=== PATIENT | female | born 1950 | race Caucasian/White ===

== ENCOUNTER 2017-07-24 18:31 | Observation (INO) | payer MEDICARE ==
[2017-07-24] MEDS ORDERED: APRESOLINE 20 MG/ML INJ IV ONE ×3 (18:47→23:10)
--- NOTE | 2017-07-24 18:52 | ERPHSYRPT ---
- History of Present Illness Time Seen by Provider: 07/24/17 18:40 Source: patient, EMS Exam Limitations: intoxication Physician History: 66 y/o female withy history of DM and alcohol abuse brought in by ambulance for altered mental state. Neighbor called because the patient was acting bizarre and talking gibberish. Pt admits to drinking vodka. Pt is constantly talking about Nabeel Gomez. Pt arrives with a BP of 234/135. Pt is not a reliable historian because of her intoxication. Timing/Duration: today Severity: mild Character of Deficits: none Deficits: no difficulties Baseline/Normal Cognition: alert but confused Current Cognition: alert but confused Baseline Gait: walks w/o assistance Associated Symptoms: denies symptoms Allergies/Adverse Reactions: hydrocodone bitartrate [From Lortab] Allergy (Mild, Verified 07/24/17 18:47) JERKING Home Medications: Albuterol Sulfate [Proventil Hfa] 108 mg IH Q4HPRN PRN 07/24/17 [History] Amitriptyline HCl 10 mg [Elavil 10 mg] 10 mg PO HS 07/24/17 [History] Atorvastatin Calcium [Lipitor] 20 mg PO DAILY 07/24/17 [History] Lisinopril/Hydrochlorothiazide [Lisinopril-Hctz 20-12.5 mg Tab] 1 each PO DAILY 07/24/17 [History] Metformin HCl 500 mg [Glucophage 500 MG] 500 mg PO BID 07/24/17 [History] Hx Tetanus, Diphtheria Vaccination/Date Given: No Hx Influenza Vaccination/Date Given: No Hx Pneumococcal Vaccination/Date Given: No - Review of Systems Constitutional: Fatigue, No Fever, No Chills Eyes: No Symptoms Ears, Nose, & Throat: No Symptoms Respiratory: No Cough, No Dyspnea Cardiac: No Chest Pain, No Edema, No Syncope Abdominal/Gastrointestinal: No Abdominal Pain, No Nausea, No Vomiting, No Diarrhea Genitourinary Symptoms: No Dysuria Musculoskeletal: No Back Pain, No Neck Pain Skin: Other (skin tear), No Rash Neurological: No Dizziness, No Focal Weakness, No Sensory Changes Psychological: No Symptoms Endocrine: No Symptoms All Other Systems: Reviewed and Negative - Past Medical History Pertinent Past Medical History: Yes Neurological History: TIA ENT History: Macular Degeneration, Other Cardiac History: Hypertension Respiratory History: Asthma Endocrine Medical History: Diabetes Type II Musculoskeletal History: Arthritis GI Medical History: GERD, Gallbladder Disease, Hemorrhoids History: No Pertinent History Psycho-Social History: Anxiety, Depression Female Reproductive Disorders: No Pertinent History - Past Surgical History Past Surgical History: Yes Neuro Surgical History: No Pertinent History Cardiac: No Pertinent History Respiratory: No Pertinent History Gastrointestinal: Cholecystectomy Genitourinary: No Pertinent History Musculoskeletal: No Pertinent History Female Surgical History: No Pertinent History - Social History Smoking Status: Never smoker Exposure to second hand smoke: No Drug Use: none Patient Lives Alone: Yes - Nursing Vital Signs Nursing Vital Signs: Initial Vital Signs Temperature 97.5 F 07/24/17 18:33 Pulse Rate 113 H 07/24/17 18:33 Respiratory Rate 20 07/24/17 18:33 Blood Pressure 227/139 07/24/17 18:33 O2 Sat by Pulse Oximetry 96 07/24/17 18:33 Pain Scale Pain Intensity 0 - Andrei Coma Scale Best Eye Response (Morrow): (4) open spontaneously Best Verbal Response (Morrow): (5) oriented Best Motor Response (Andrei): (6) obeys commands Andrei Total: 15 - Physical Exam General Appearance: no apparent distress, alert Eye Exam: bilateral eye: PERRL, EOMI Ears, Nose, Throat Exam: normal ENT inspection, moist mucous membranes Neck Exam: normal inspection, non-tender, supple Respiratory: normal breath sounds, lungs clear, airway intact, No respiratory distress Cardiovascular: tachycardia, No edema Gastrointestinal: soft, No tenderness, No distention Back Exam: normal inspection Extremity Exam: normal inspection, No pedal edema Mental Status: alert, agitated, intoxicated appearance certified juvenile probation officer Exam: abnormal speech, tongue midline, No normal speech Coordination/Gait: normal finger to nose, normal gait Motor/Sensory: no motor deficit, no sensory deficit Skin Exam: other (skin tear left arm), No rash - Course Nursing assessment & vital signs reviewed: Yes EKG Interpreted by Me: Sinus Tach (hr 106) Ordered Tests: Active Orders 24 hr Category Date Time Status EKG-ER Only STAT Care 07/24/17 18:45 Active IV Insertion STAT Care 07/24/17 18:45 Active CHEST 1 VIEW (PORTABLE) Stat Exams 07/24/17 18:46 Taken HEAD WITHOUT CONTRAST [CT] Stat Exams 07/24/17 18:45 Taken ACETAMINOPHEN Stat Lab 07/24/17 18:50 Completed BLOOD CULTURE Stat Lab 07/24/17 18:45 Ordered CBC W DIFF Stat Lab 07/24/17 18:50 Completed CMP Stat Lab 07/24/17 18:50 Completed ETHYL ALCOHOL Stat Lab 07/24/17 18:50 Completed Lactic Acid Stat Lab 07/24/17 19:10 Results PROTIME WITH INR Stat Lab 07/24/17 18:50 Completed PTT Stat Lab 07/24/17 18:50 Completed SALICYLATE Stat Lab 07/24/17 18:50 Completed TROPONIN Q3H Lab 07/24/17 18:50 Completed TROPONIN Q3H Lab 07/24/17 22:00 Ordered UA W/ MICROSCOPIC Stat Lab 07/24/17 19:25 Completed Urine Triage Profile Stat Lab 07/24/17 19:25 Completed Medication Summary Generic Name Dose Route Start Last Admin Trade Name Freq PRN Reason Stop Dose Admin Sodium Chloride 1,000 mls @ 999 mls/hr 07/24/17 20:18 07/24/17 20:23 Sodium Chloride 0.9% 1000 Ml IV 07/24/17 21:18 999 mls/hr .Q1H1M STA Administration Discontinued Medications Generic Name Dose Route Start Last Admin Trade Name Freq PRN Reason Stop Dose Admin Hydralazine HCl 10 mg 07/24/17 18:47 07/24/17 19:27 Apresoline 20 Mg/Ml Inj IV 07/24/17 18:48 10 mg STAT ONE Administration Hydralazine HCl Confirm 07/24/17 19:24 Apresoline 20 Mg/Ml Inj Administered 07/24/17 19:25 Dose 20 mg .ROUTE .STK-MED ONE Sodium Chloride Confirm 07/24/17 20:19 Sodium Chloride 0.9% 1000 Ml Administered 07/24/17 20:20 Dose 1,000 mls @ ud .ROUTE .STK-MED ONE Lab/Rad Data: Laboratory Result Diagrams 07/24/17 18:50 07/24/17 18:50 Laboratory Results 07/24/17 07/24/17 07/24/17 Range/Units 19:25 19:25 19:10 WBC (4.0-10.5) K/mm3 RBC (4.1-5.4) M/mm3 Hgb (12.0-16.0) gm/dl Hct (35-47) % MCV (78-100) fl MCH (26-32) pg MCHC (32-36) g/dl RDW (11.5-14.0) % Plt Count (150-450) K/mm3 MPV (6-9.5) fl Gran % (36.0-66.0) % Eos # (Auto) (0-0.5) Absolute Lymphs (auto) (1.0-4.6) Absolute Monos (auto) (0.0-1.3) Lymphocytes % (24.0-44.0) % Monocytes % (0.0-12.0) % Eosinophils % (0.00-5.0) % Basophils % (0.0-0.4) % Absolute Granulocytes (1.4-6.9) Basophils # (0-0.4) PT (9.95-12.35) SECONDS INR (0.8-3.0) APTT (25.3-37.0) SECONDS Sodium (137-145) mmol/L Potassium (3.5-5.1) mmol/L Chloride (98-107) mmol/L Carbon Dioxide (22-30) mmol/L Anion Gap (5-15) MEQ/L BUN (7-17) mg/dL Creatinine (0.52-1.04) mg/dL Estimated GFR ML/MIN Glucose (74-106) mg/dL Lactic Acid 3.2 H (0.4-2.0) Calcium (8.4-10.2) mg/dL Total Bilirubin (0.2-1.3) mg/dL AST (14-36) U/L ALT (0-35) U/L Alkaline Phosphatase (38-126) U/L Troponin I (0.000-0.034) ng/mL Serum Total Protein (6.3-8.2) g/dL Albumin (3.5-5.0) g/dL Ur Collection Type VOID Urine Color YELLOW (YELLOW) Urine Appearance CLEAR (CLEAR) Urine pH 6.0 (5-6) Ur Specific [place] 1.015 (1.005-1.025) Urine Protein TRACE (Negative) Urine Ketones NEGATIVE (NEGATIVE) Urine Blood NEGATIVE (0-5) Robert/ul Urine Nitrite NEGATIVE (NEGATIVE) Urine Bilirubin NEGATIVE (NEGATIVE) Urine Urobilinogen NORMAL (0-1) mg/dL Ur Leukocyte Esterase NEGATIVE (NEGATIVE) Urine Microscopic RBC 0-2 (0-2) /HPF Urine Microscopic WBC 0-2 (0-5) /HPF Ur Epithelial Cells FEW (FEW) /HPF Urine Bacteria FEW (NEGATIVE) /HPF Urine Culture Reflexed NO (NO) Urine Glucose NEGATIVE (NEGATIVE) mg/dL Salicylates (2-20) mg/dL Urine Opiates Level NEGATIVE (NEGATIVE) Ur Methadone NEGATIVE (NEGATIVE) Acetaminophen (10-30) ug/ml Urine Barbiturates NEGATIVE (NEGATIVE) Ur Phencyclidine (PCP) NEGATIVE (NEGATIVE) Urine Amphetamine NEGATIVE (NEGATIVE) U Benzodiazepine Level NEGATIVE (NEGATIVE) Urine Cocaine NEGATIVE (NEGATIVE) Urine Marijuana (THC) NEGATIVE (NEGATIVE) Ethyl Alcohol (0-9) mg/dL Specimen Received 07/24/17 19307/24/17 07/24/17 07/24/17 Range/Units 18:50 18:50 18:50 WBC (4.0-10.5) K/mm3 RBC (4.1-5.4) M/mm3 Hgb (12.0-16.0) gm/dl Hct (35-47) % MCV (78-100) fl MCH (26-32) pg MCHC (32-36) g/dl RDW (11.5-14.0) % Plt Count (150-450) K/mm3 MPV (6-9.5) fl Gran % (36.0-66.0) % Eos # (Auto) (0-0.5) Absolute Lymphs (auto) (1.0-4.6) Absolute Monos (auto) (0.0-1.3) Lymphocytes % (24.0-44.0) % Monocytes % (0.0-12.0) % Eosinophils % (0.00-5.0) % Basophils % (0.0-0.4) % Absolute Granulocytes (1.4-6.9) Basophils # (0-0.4) PT 10.2 (9.95-12.35) SECONDS INR 0.92 (0.8-3.0) APTT 28.1 (25.3-37.0) SECONDS Sodium 147 H (137-145) mmol/L Potassium 4.9 (3.5-5.1) mmol/L Chloride 104 (98-107) mmol/L Carbon Dioxide 28 (22-30) mmol/L Anion Gap 19.8 H (5-15) MEQ/L BUN 14 (7-17) mg/dL Creatinine 0.67 (0.52-1.04) mg/dL Estimated GFR > 60.0 ML/MIN Glucose 195 H (74-106) mg/dL Lactic Acid (0.4-2.0) Calcium 9.6 (8.4-10.2) mg/dL Total Bilirubin 0.40 (0.2-1.3) mg/dL AST 40 H (14-36) U/L ALT 58 H (0-35) U/L Alkaline Phosphatase 95 (38-126) U/L Troponin I < 0.012 (0.000-0.034) ng/mL Serum Total Protein 7.4 (6.3-8.2) g/dL Albumin 4.4 (3.5-5.0) g/dL Ur Collection Type Urine Color (YELLOW) Urine Appearance (CLEAR) Urine pH (5-6) Ur Specific [place] (1.005-1.025) Urine Protein (Negative) Urine Ketones (NEGATIVE) Urine Blood (0-5) Robert/ul Urine Nitrite (NEGATIVE) Urine Bilirubin (NEGATIVE) Urine Urobilinogen (0-1) mg/dL Ur Leukocyte Esterase (NEGATIVE) Urine Microscopic RBC (0-2) /HPF Urine Microscopic WBC (0-5) /HPF Ur Epithelial Cells (FEW) /HPF Urine Bacteria (NEGATIVE) /HPF Urine Culture Reflexed (NO) Urine Glucose (NEGATIVE) mg/dL Salicylates < 1.0 L (2-20) mg/dL Urine Opiates Level (NEGATIVE) Ur Methadone (NEGATIVE) Acetaminophen < 10 L (10-30) ug/ml Urine Barbiturates (NEGATIVE) Ur Phencyclidine (PCP) (NEGATIVE) Urine Amphetamine (NEGATIVE) U Benzodiazepine Level (NEGATIVE) Urine Cocaine (NEGATIVE) Urine Marijuana (THC) (NEGATIVE) Ethyl Alcohol 284 H (0-9) mg/dL Specimen Received 07/24/17 Range/Units 18:50 WBC 9.7 (4.0-10.5) K/mm3 RBC 4.94 (4.1-5.4) M/mm3 Hgb 15.4 (12.0-16.0) gm/dl Hct 46.1 (35-47) % MCV 93.3 (78-100) fl MCH 31.2 (26-32) pg MCHC 33.4 (32-36) g/dl RDW 14.9 H (11.5-14.0) % Plt Count 291 (150-450) K/mm3 MPV 9.1 (6-9.5) fl Gran % 37.6 (36.0-66.0) % Eos # (Auto) 0.46 (0-0.5) Absolute Lymphs (auto) 4.58 (1.0-4.6) Absolute Monos (auto) 0.86 (0.0-1.3) Lymphocytes % 47.3 H (24.0-44.0) % Monocytes % 8.9 (0.0-12.0) % Eosinophils % 4.8 (0.00-5.0) % Basophils % 1.4 (0.0-0.4) % Absolute Granulocytes 3.64 (1.4-6.9) Basophils # 0.14 (0-0.4) PT (9.95-12.35) SECONDS INR (0.8-3.0) APTT (25.3-37.0) SECONDS Sodium (137-145) mmol/L Potassium (3.5-5.1) mmol/L Chloride (98-107) mmol/L Carbon Dioxide (22-30) mmol/L Anion Gap (5-15) MEQ/L BUN (7-17) mg/dL Creatinine (0.52-1.04) mg/dL Estimated GFR ML/MIN Glucose (74-106) mg/dL Lactic Acid (0.4-2.0) Calcium (8.4-10.2) mg/dL Total Bilirubin (0.2-1.3) mg/dL AST (14-36) U/L ALT (0-35) U/L Alkaline Phosphatase (38-126) U/L Troponin I (0.000-0.034) ng/mL Serum Total Protein (6.3-8.2) g/dL Albumin (3.5-5.0) g/dL Ur Collection Type Urine Color (YELLOW) Urine Appearance (CLEAR) Urine pH (5-6) Ur Specific [place] (1.005-1.025) Urine Protein (Negative) Urine Ketones (NEGATIVE) Urine Blood (0-5) Robert/ul Urine Nitrite (NEGATIVE) Urine Bilirubin (NEGATIVE) Urine Urobilinogen (0-1) mg/dL Ur Leukocyte Esterase (NEGATIVE) Urine Microscopic RBC (0-2) /HPF Urine Microscopic WBC (0-5) /HPF Ur Epithelial Cells (FEW) /HPF Urine Bacteria (NEGATIVE) /HPF Urine Culture Reflexed (NO) Urine Glucose (NEGATIVE) mg/dL Salicylates (2-20) mg/dL Urine Opiates Level (NEGATIVE) Ur Methadone (NEGATIVE) Acetaminophen (10-30) ug/ml Urine Barbiturates (NEGATIVE) Ur Phencyclidine (PCP) (NEGATIVE) Urine Amphetamine (NEGATIVE) U Benzodiazepine Level (NEGATIVE) Urine Cocaine (NEGATIVE) Urine Marijuana (THC) (NEGATIVE) Ethyl Alcohol (0-9) mg/dL Specimen Received - Progress Progress: unchanged Progress Note: 07/24/17 20:24 Repeat BP is 168/74. Pt has an alcohol level of 284. CT scan head is negative. CXR is negative. Lactic acid is 3.2 and the patient will be given a liter of fluids. Pt has a Na of 147. Pt lives alone and is a fall risk. Pt has been admitted to Dr Daigle for alcohol intoxication. - Departure Time of Disposition: 20:26 Departure Disposition: Observation Clinical Impression: Alcohol intoxication Qualifiers: Complication of substance-induced condition: uncomplicated Qualified Code(s): F10.920 - Alcohol use, unspecified with intoxication, uncomplicated Condition: Fair Critical Care Time: No Referrals: MACK MILIAN MD [Primary Care Provider] -
[2017-07-24 19:03] LABS: BASOPHIL % 1.4 % (0.0-0.4); Basophil (Absolute #) 0.14 (0-0.4); Eosinophil % 4.8 % (0.00-5.0); Eosinophil (Absolute #) 0.46 (0-0.5); Granulocyte Absolute (ANC) 3.64 (1.4-6.9); Granulocytes % 37.6 % (36.0-66.0); Hematocrit 46.1 % (35-47); Hemoglobin 15.4 gm/dl (12.0-16.0); Lymphocyte (Absolute #) 4.58 (1.0-4.6); Lymphocytes % 47.3 % (24.0-44.0); Mean Cell Volume 93.3 fl (78-100); Mean Corpuscular Hemoglobin 31.2 pg (26-32); Mean Corpuscular Hgb Concent. 33.4 g/dl (32-36); Mean Platelet Volume 9.1 fl (6-9.5); Monocyte (Absolute #) 0.86 (0.0-1.3); Monocytes % 8.9 % (0.0-12.0); Platelet Count 291 K/mm3 (150-450); Red Blood Count 4.94 M/mm3 (4.1-5.4); Red Cell Distribution Width 14.9 % (11.5-14.0); White Blood Count 9.7 K/mm3 (4.0-10.5)
[2017-07-24 19:16] LABS: INR 0.92 (0.8-3.0)
[2017-07-24 19:17] LABS: Lactic Acid 3.2 (0.4-2.0)
[2017-07-24 19:18] LABS: PTT 28.1 SECONDS (25.3-37.0)
[2017-07-24 19:23] LABS: ALBUMIN 4.4 g/dL (3.5-5.0); ALKALINE PHOSPHATASE 95 U/L (38-126); ANION GAP 19.8 MEQ/L (5-15); BLOOD UREA NITROGEN 14 mg/dL (7-17); CHLORIDE 104 mmol/L (98-107); Calcium 9.6 mg/dL (8.4-10.2); Carbon Dioxide 28 mmol/L (22-30); Creatinine 1 0.67 mg/dL (0.52-1.04); ETHYL ALCOHOL 284 mg/dL (0-9); Glucose 195 mg/dL (74-106); Potassium 4.9 mmol/L (3.5-5.1); SGOT/AST 40 U/L (14-36); SGPT/ALT 58 U/L (0-35); SODIUM 147 mmol/L (137-145); Total Protein 7.4 g/dL (6.3-8.2)
[2017-07-24] MEDS ORDERED: APRESOLINE 20 MG/ML INJ ONE (19:24)
[2017-07-24 19:39] LABS: Appearance CLEAR (CLEAR); Bilirubin NEGATIVE (NEGATIVE); Blood NEGATIVE Ery/ul (0-5); Glucose NEGATIVE (NEGATIVE); Ketones NEGATIVE (NEGATIVE); Leukocyte Esterase NEGATIVE (NEGATIVE); Nitrite NEGATIVE (NEGATIVE); Protein,Urine Dip TRACE (Negative); Specific Gravity 1.015 (1.005-1.025); Urobilinogen NORMAL mg/dL (0-1)
[2017-07-24 19:40] LABS: Bacteria FEW /HPF (NEGATIVE); Epithelial Cells FEW /HPF (FEW); WBC 0-2 /HPF (0-5)
[2017-07-24 19:41] LABS: ACETAMINOPHEN < 10 ug/ml (10-30); SALICYLATE < 1.0 mg/dL (2-20)
[2017-07-24 19:45] LABS: Amphetamine,Urine NEGATIVE (NEGATIVE); Barbiturate,Urine NEGATIVE (NEGATIVE); Benzodiazepine,Urine NEGATIVE (NEGATIVE); Cocaine,Urine NEGATIVE (NEGATIVE); Methadone,Urine NEGATIVE (NEGATIVE); Opiate,Urine NEGATIVE (NEGATIVE); PCP,Urine NEGATIVE (NEGATIVE); THC,Urine NEGATIVE (NEGATIVE)
[2017-07-24] MEDS ORDERED: Sodium Chloride 0.9% 1000 ML 1,000 ML IV STA ×2 (20:18→22:58)
[2017-07-24] MEDS ORDERED: Sodium Chloride 0.9% 1000 ML 1,000 ML ONE (20:19)
[2017-07-24] MEDS ORDERED: Zofran 4 MG/2 ML VIAL IV PRN (20:26)
[2017-07-24] MEDS ORDERED: Sodium Chloride 0.9% 1000 ML 1,000 ML IV SCH (20:30)
[2017-07-24 22:06] LABS: Lactic Acid 3.2 (0.4-2.0)
[2017-07-24] MEDS ORDERED: TYLENOL EXTRA STRENGTH 500 MG PO PRN (22:57)
[2017-07-24] MEDS ORDERED: NovoLOG Insulin SQ PRN (22:58)
[2017-07-25 05:56] LABS: BASOPHIL % 0.7 % (0.0-0.4); Basophil (Absolute #) 0.09 (0-0.4); Eosinophil % 1.4 % (0.00-5.0); Eosinophil (Absolute #) 0.18 (0-0.5); Granulocyte Absolute (ANC) 8.52 (1.4-6.9); Hematocrit 44.6 % (35-47); Hemoglobin 14.9 gm/dl (12.0-16.0); Lymphocyte (Absolute #) 3.17 (1.0-4.6); Lymphocytes % 24.5 % (24.0-44.0); Mean Cell Volume 92.7 fl (78-100); Mean Corpuscular Hgb Concent. 33.4 g/dl (32-36); Mean Platelet Volume 9.1 fl (6-9.5); Monocyte (Absolute #) 0.96 (0.0-1.3); Monocytes % 7.4 % (0.0-12.0); Platelet Count 276 K/mm3 (150-450); Red Blood Count 4.81 M/mm3 (4.1-5.4); Red Cell Distribution Width 14.8 % (11.5-14.0); White Blood Count 12.9 K/mm3 (4.0-10.5)
[2017-07-25 06:18] LABS: ANION GAP 16.4 MEQ/L (5-15); BLOOD UREA NITROGEN 9 mg/dL (7-17); CHLORIDE 100 mmol/L (98-107); Calcium 8.7 mg/dL (8.4-10.2); Carbon Dioxide 22 mmol/L (22-30); Creatinine 1 0.45 mg/dL (0.52-1.04); Glucose 199 mg/dL (74-106); Potassium 3.8 mmol/L (3.5-5.1); SODIUM 135 mmol/L (137-145)
--- NOTE | 2017-07-25 08:49 | XRAY ---
Indication: Acute mental status change. Comparison: January 12, 2011. Portable chest again demonstrates normal heart and lungs. Bony thorax intact again with minimal osteopenia and degenerative changes. No new/acute findings.
--- NOTE | 2017-07-25 08:49 | XRAY ---
Indication: Acute mental status change. Confusion. Multiple contiguous axial images obtained through the head without contrast. Comparison: November 05, 2013. Study slightly degraded by minimal motion artifact. Again age-appropriate global atrophy and minimal periventricular degenerative micro-ischemia bilaterally. No acute intracranial hemorrhage, abnormal extra-axial fluid collection, or mass effect. Fourth ventricle is midline without hydrocephalus. Bony calvarium intact. Visualized paranasal sinuses and mastoid air cells are clear. Impression: 1. Minimal motion artifact. 2. Grossly stable nonacute senile brain. Comment: Preliminary interpretation was made by [facility]. No discrepancy. CTDI 73.39
--- NOTE | 2017-07-25 11:20 | PCM.SSS ---
History of Present Illness - Chief Complaint Chief Complaint: alcohol intoxication History of Present Illness: is a 66 year old female who came to the ER after concern by a neighbor and the police were called, she admits to drinking a lot of alcohol and skinned her arm in the hallway. She denies pain today, feels well and is taking po. She is alert, denies suicidal or homicidal ideations. She was on amitriptyline in the past for depression but states it caused her a lot of sedation so stopped it more than a year ago. As of late feeling depressed, she is down about her alcohol relapse, normally attends AA meetings at her [facility]. - Review of Systems Constitutional: No Fever, No Chills Ears, Nose, & Throat: No Symptoms Respiratory: No Cough, No Short Of Breath Cardiac: No Chest Pain, No Edema, No Syncope Abdominal/Gastrointestinal: No Abdominal Pain, No Nausea, No Vomiting, No Diarrhea Skin: No Rash All Other Systems: Reviewed and Negative Medications & Allergies Home Medications: Home Medication List Ascorbic Acid [Vitamin C] 1,000 mg PO DAILY 07/25/17 [History Confirmed 07/25/17 ] Calcium 500 mg PO DAILY 07/25/17 [History Confirmed 07/25/17] Cholecalciferol (Vitamin D3) [Vitamin D3] 1,000 unit PO DAILY 07/25/17 [History Confirmed 07/25/17] Duloxetine HCl 30 mg [Cymbalta 30 MG Capsule] 30 mg PO DAILY #30 cap 07/25 [Rx] Ibuprofen 200 mg [Motrin 200 mg] 200 mg PO BID PRN PRN 07/25/17 [History Confirmed 07/25/17] Multivitamin [Daily Multiple Vitamin] 1 each PO DAILY 07/25/17 [History Confirmed 07/25/17] Allergies/Adverse Reactions: Allergies Allergy/AdvReac Type Severity Reaction Status Date / Time hydrocodone bitartrate Allergy Mild JERKING Verified 07/24/17 18:47 [From Lortab] - Past Medical History Past Medical History: Yes Neurological History: TIA ENT History: Macular Degeneration Cardiac History: Hypertension Respiratory History: Asthma Endocrine Medical History: Diabetes Type II Musculoskelatal History: Arthritis GI Medical History: GERD, Gallbladder Disease, Hemorrhoids History: No Pertinent History Pyscho-Social History: Anxiety, Depression Reproductive Disorders: No Pertinent History Comment: ALCOHOLISM - Female History Are you now?: No - Past Surgical History Past Surgical History: Yes Neuro Surgical History: No Pertinent History Cardiac History: No Pertinent History Respiratory Surgery: No Pertinent History GI Surgical History: Cholecystectomy Genitourinary Surgical Hx: No Pertinent History Musculskeletal Surgical Hx: No Pertinent History Female Surgical History: No Pertinent History - Social History Smoking Status: Never smoker Exposure to second hand smoke: Yes (past-father) Alcohol: Daily Drug Use: none - Physical Exam Vital Signs: Vital Signs - 24 hr Temp Pulse Resp BP Pulse Ox 07/25/17 07:31 124 H 22 97 07/25/17 04:00 98.7 F 120 H 20 97 07/25/17 00:01 120 H 07/25/17 00:00 99.0 F 120 H 27 H 178/109 96 07/24/17 21:12 97.8 F 119 H 32 H 178/105 98 07/24/17 19:50 97.5 F 114 H 20 133/89 94 L 07/24/17 19:47 97.5 F 114 H 20 133/89 94 L 07/24/17 18:33 97.5 F 113 H 20 227/139 96 General Appearance: no apparent distress, alert Eye Exam: PERRL/EOMI, eyes nml inspection Respiratory Exam: normal breath sounds, lungs clear, No respiratory distress Cardiovascular Exam: regular rate/rhythm, normal heart sounds, normal peripheral pulses Gastrointestinal/Abdomen Exam: soft, normal bowel sounds, No tenderness, No mass Extremity Exam: normal inspection, normal range of motion, pelvis stable Skin Exam: normal color, warm, dry, No rash Results - Labs Lab/Micro Results: Accuchecks Date 07/25/17 Time 07:27 Lab Results-Last 24 Hours 07/24/17 07/24/17 07/25/17 Range/Units 21:54 21:55 05:17 WBC 12.9 H (4.0-10.5) K/mm3 RBC 4.81 (4.1-5.4) M/mm3 Hgb 14.9 (12.0-16.0) gm/dl Hct 44.6 (35-47) % MCV 92.7 (78-100) fl MCH 31.0 (26-32) pg MCHC 33.4 (32-36) g/dl RDW 14.8 H (11.5-14.0) % Plt Count 276 (150-450) K/mm3 MPV 9.1 (6-9.5) fl Gran % 66.0 (36.0-66.0) % Eos # (Auto) 0.18 (0-0.5) Absolute Lymphs (auto) 3.17 (1.0-4.6) Absolute Monos (auto) 0.96 (0.0-1.3) Lymphocytes % 24.5 (24.0-44.0) % Monocytes % 7.4 (0.0-12.0) % Eosinophils % 1.4 (0.00-5.0) % Basophils % 0.7 (0.0-0.4) % Absolute Granulocytes 8.52 H (1.4-6.9) Basophils # 0.09 (0-0.4) Sodium (137-145) mmol/L Potassium (3.5-5.1) mmol/L Chloride (98-107) mmol/L Carbon Dioxide (22-30) mmol/L Anion Gap (5-15) MEQ/L BUN (7-17) mg/dL Creatinine (0.52-1.04) mg/dL Estimated GFR ML/MIN Glucose (74-106) mg/dL Lactic Acid 3.2 H (0.4-2.0) Calcium (8.4-10.2) mg/dL Troponin I < 0.012 (0.000-0.034) ng/mL 07/25/17 Range/Units 05:17 WBC (4.0-10.5) K/mm3 RBC (4.1-5.4) M/mm3 Hgb (12.0-16.0) gm/dl Hct (35-47) % MCV (78-100) fl MCH (26-32) pg MCHC (32-36) g/dl RDW (11.5-14.0) % Plt Count (150-450) K/mm3 MPV (6-9.5) fl Gran % (36.0-66.0) % Eos # (Auto) (0-0.5) Absolute Lymphs (auto) (1.0-4.6) Absolute Monos (auto) (0.0-1.3) Lymphocytes % (24.0-44.0) % Monocytes % (0.0-12.0) % Eosinophils % (0.00-5.0) % Basophils % (0.0-0.4) % Absolute Granulocytes (1.4-6.9) Basophils # (0-0.4) Sodium 135 L (137-145) mmol/L Potassium 3.8 (3.5-5.1) mmol/L Chloride 100 (98-107) mmol/L Carbon Dioxide 22 (22-30) mmol/L Anion Gap 16.4 H (5-15) MEQ/L BUN 9 (7-17) mg/dL Creatinine 0.45 L (0.52-1.04) mg/dL Estimated GFR > 60.0 ML/MIN Glucose 199 H (74-106) mg/dL Lactic Acid (0.4-2.0) Calcium 8.7 (8.4-10.2) mg/dL Troponin I (0.000-0.034) ng/mL Accuchecks Date 07/25/17 Time 07:27 Assessment/Plan (1) Alcohol intoxication Current Visit: Yes Status: Acute Onset Date: ~07/24/17 Qualifiers: Complication of substance-induced condition: uncomplicated Qualified Code(s ): F10.920 - Alcohol use, unspecified with intoxication, uncomplicated Assessment & Plan: resolved at this time, recommend she continue AA meetings and some outpatient counseling needs started, she agrees to this. (2) Chronic alcohol abuse Current Visit: No Status: Chronic Code(s): F10.10 - ALCOHOL ABUSE, UNCOMPLICATED (3) Depression Current Visit: Yes Status: Acute Assessment & Plan: awaiting psych consult at this time, would recommend we start on antidepressant and have her followup as an outpatient with me as scheduled on 08/15/17 at 1pm Code(s): F32.9 - MAJOR DEPRESSIVE DISORDER, SINGLE EPISODE, UNSPECIFIED Hospital Summary - Vitals & Intake/Output Vital Signs: Vital Signs Temperature 98.7 F 07/25/17 04:00 Pulse Rate 124 H 07/25/17 07:31 Respiratory Rate 22 07/25/17 07:31 Blood Pressure 178/109 07/25/17 00:00 O2 Sat by Pulse Oximetry 97 07/25/17 07:31 Intake & Output: Intake & Output 07/22/17 07/23/17 07/24/1718 11:59 11:59 11:59 11:59 Intake Total 3120 Balance 3120 Weight 81.2 kg - Lab Result Diagrams: 07/25/17 05:17 07/25/17 05:17 Lab Results-Last 24 Hrs: Accuchecks Date 07/25/17 Time 07:27 Lab Results-Last 24 Hours 07/24/17 07/24/17 07/25/17 Range/Units 21:54 21:55 05:17 WBC 12.9 H (4.0-10.5) K/mm3 RBC 4.81 (4.1-5.4) M/mm3 Hgb 14.9 (12.0-16.0) gm/dl Hct 44.6 (35-47) % MCV 92.7 (78-100) fl MCH 31.0 (26-32) pg MCHC 33.4 (32-36) g/dl RDW 14.8 H (11.5-14.0) % Plt Count 276 (150-450) K/mm3 MPV 9.1 (6-9.5) fl Gran % 66.0 (36.0-66.0) % Eos # (Auto) 0.18 (0-0.5) Absolute Lymphs (auto) 3.17 (1.0-4.6) Absolute Monos (auto) 0.96 (0.0-1.3) Lymphocytes % 24.5 (24.0-44.0) % Monocytes % 7.4 (0.0-12.0) % Eosinophils % 1.4 (0.00-5.0) % Basophils % 0.7 (0.0-0.4) % Absolute Granulocytes 8.52 H (1.4-6.9) Basophils # 0.09 (0-0.4) Sodium (137-145) mmol/L Potassium (3.5-5.1) mmol/L Chloride (98-107) mmol/L Carbon Dioxide (22-30) mmol/L Anion Gap (5-15) MEQ/L BUN (7-17) mg/dL Creatinine (0.52-1.04) mg/dL Estimated GFR ML/MIN Glucose (74-106) mg/dL Lactic Acid 3.2 H (0.4-2.0) Calcium (8.4-10.2) mg/dL Troponin I < 0.012 (0.000-0.034) ng/mL 07/25/17 Range/Units 05:17 WBC (4.0-10.5) K/mm3 RBC (4.1-5.4) M/mm3 Hgb (12.0-16.0) gm/dl Hct (35-47) % MCV (78-100) fl MCH (26-32) pg MCHC (32-36) g/dl RDW (11.5-14.0) % Plt Count (150-450) K/mm3 MPV (6-9.5) fl Gran % (36.0-66.0) % Eos # (Auto) (0-0.5) Absolute Lymphs (auto) (1.0-4.6) Absolute Monos (auto) (0.0-1.3) Lymphocytes % (24.0-44.0) % Monocytes % (0.0-12.0) % Eosinophils % (0.00-5.0) % Basophils % (0.0-0.4) % Absolute Granulocytes (1.4-6.9) Basophils # (0-0.4) Sodium 135 L (137-145) mmol/L Potassium 3.8 (3.5-5.1) mmol/L Chloride 100 (98-107) mmol/L Carbon Dioxide 22 (22-30) mmol/L Anion Gap 16.4 H (5-15) MEQ/L BUN 9 (7-17) mg/dL Creatinine 0.45 L (0.52-1.04) mg/dL Estimated GFR > 60.0 ML/MIN Glucose 199 H (74-106) mg/dL Lactic Acid (0.4-2.0) Calcium 8.7 (8.4-10.2) mg/dL Troponin I (0.000-0.034) ng/mL Micro Results-Entire Visit: Accuchecks Date 07/25/17 Time 07:27 - Discharge Disposition: Home, Self-Care Condition: Good Prescriptions: New Duloxetine HCl 30 mg [Cymbalta 30 MG Capsule] 30 mg PO DAILY #30 cap Continue Multivitamin [Daily Multiple Vitamin] 1 each PO DAILY Ibuprofen 200 mg [Motrin 200 mg] 200 mg PO BID PRN PRN PRN Reason: pain Cholecalciferol (Vitamin D3) [Vitamin D3] 1,000 unit PO DAILY Calcium 500 mg PO DAILY Ascorbic Acid [Vitamin C] 1,000 mg PO DAILY Follow up with: MACK MILIAN MD [Primary Care Provider] - 1 Week
[2017-07-25] MEDS ORDERED: MOTRIN 200 MG PO PRN (12:09)
[2017-07-25] MEDS ORDERED: VITAMIN D PO SCH (13:00)
[2017-07-25] MEDS ORDERED: Vitamin C 500 MG PO SCH (13:00)
[2017-07-25 16:47] VITALS: BP 187/107; PULSE 112; O2SAT 97
[2017-07-26] MEDS ORDERED: Calcium 500MG W/Vit D Tablet PO SCH (10:00)
[2017-07-26] MEDS ORDERED: THERAGRAN MULTIVITAMIN PO SCH (10:00)
[2017-07-26] MEDS ORDERED: NON-FORMULARY ITEM (Cholecalciferol (Vitamin D3) [Vitamin D3] 1,000 UNIT) PO SCH (10:00)
[2017-07-26] MEDS ORDERED: MULTIVITAMIN PO SCH (10:00)
[2017-07-26] MEDS ORDERED: NON-FORMULARY ITEM (Ascorbic Acid [Vitamin C] 1,000 MG) PO SCH (10:00)
== END 2017-07-25 17:38 | disposition home or self-care (01) ==
LOC: ED 18:31 → ICU 20:49 → MED SURG 07-25 09:11
PROVIDERS: ADMIT Family Medicine; ATTEND Family Medicine
DX: F10.920 Alcohol use, unspecified with intoxication, uncomplicated (principal); F10.10 Alcohol abuse, uncomplicated; F32.9 Major depressive disorder, single episode, unspecified; E11.9 Type 2 diabetes mellitus without complications; Z79.4 Long term (current) use of insulin; F41.9 Anxiety disorder, unspecified
CPT/HCPCS: 36000; 36415; 70450; 71045; 80048; 80053; 80302; 80307; 81000; 82962; 83605; 84484; 85025; 85610; 85730; 87040; 90791; 93005; 93268; 96360; 96374; 99285; G0378; G0481; 99284; J0360; J2405; Q3014; A9270-GY; G0480

== ENCOUNTER 2017-08-04 16:58 | Observation (INO) | payer MEDICARE ==
[2017-08-04] MEDS ORDERED: Pepcid 20 MG VIAL IV ONE ×2 (17:44→17:48)
[2017-08-04] MEDS ORDERED: Zofran 4 MG/2 ML VIAL IV ONE (17:45)
[2017-08-04] MEDS ORDERED: GI COCKTAIL 45 ML (Maalox/Lidocaine) PO ONE (17:46)
[2017-08-04] MEDS ORDERED: Zofran 4 MG/2 ML VIAL ONE (17:48)
[2017-08-04] MEDS ORDERED: MAALOX ES 30 ML UNIT DOSE ONE (17:48)
[2017-08-04] MEDS ORDERED: XYLOCAINE HCl Viscous ONE (17:48)
[2017-08-04 17:57] LABS: BASOPHIL % 0.5 % (0.0-0.4); Basophil (Absolute #) 0.07 (0-0.4); Eosinophil % 0.1 % (0.00-5.0); Eosinophil (Absolute #) 0.02 (0-0.5); Granulocyte Absolute (ANC) 13.24 (1.4-6.9); Granulocytes % 85.2 % (36.0-66.0); Hematocrit 47.7 % (35-47); Hemoglobin 16.1 gm/dl (12.0-16.0); Lymphocyte (Absolute #) 1.53 (1.0-4.6); Lymphocytes % 9.8 % (24.0-44.0); Mean Cell Volume 92.4 fl (78-100); Mean Corpuscular Hemoglobin 31.2 pg (26-32); Mean Corpuscular Hgb Concent. 33.8 g/dl (32-36); Mean Platelet Volume 9.4 fl (6-9.5); Monocyte (Absolute #) 0.69 (0.0-1.3); Monocytes % 4.4 % (0.0-12.0); Platelet Count 291 K/mm3 (150-450); Red Blood Count 5.16 M/mm3 (4.1-5.4); Red Cell Distribution Width 14.8 % (11.5-14.0); White Blood Count 15.6 K/mm3 (4.0-10.5)
[2017-08-04 18:02] LABS: ALKALINE PHOSPHATASE 105 U/L (38-126); AMYLASE 81 U/L (30-110); ANION GAP 24.5 MEQ/L (5-15); BLOOD UREA NITROGEN 15 mg/dL (7-17); CHLORIDE 97 mmol/L (98-107); Calcium 10.1 mg/dL (8.4-10.2); Carbon Dioxide 20 mmol/L (22-30); Creatinine 1 0.54 mg/dL (0.52-1.04); Glucose 252 mg/dL (74-106); LIPASE 85 U/L (23-300); Potassium 4.2 mmol/L (3.5-5.1); SGOT/AST 41 U/L (14-36); SODIUM 137 mmol/L (137-145); Total Protein 8.3 g/dL (6.3-8.2)
[2017-08-04] MEDS ORDERED: Sodium Chloride 0.9% 1000 ML 1,000 ML IV STA (18:04)
[2017-08-04 18:08] LABS: SGPT/ALT 45 U/L (0-35)
[2017-08-04] MEDS ORDERED: Sodium Chloride 0.9% 1000 ML 1,000 ML ONE (18:15)
--- NOTE | 2017-08-04 18:15 | ERPHSYRPT ---
<OLVINWISAM - Last Filed: 08/04/17 19:28> - History of Present Illness Source: patient, EMS Exam Limitations: no limitations Patient Subjective Stated Complaint: states has been drinking for two days. did not drink today. began having vomiting today with burning in esophagus. Triage Nursing Assessment: vomiting on arrival to er. skin w/d, color pale, resp nonlabored. patient has rambling speech. a/o times three at present time. has some bruising noted under right eye. abrasions and bruising noted to both lower arms. Timing/Duration: yesterday Severity: moderate Modifying Factors: Improves With: eating Associated Symptoms: nausea, vomiting Hx Tetanus, Diphtheria Vaccination/Date Given: No Hx Influenza Vaccination/Date Given: No Hx Pneumococcal Vaccination/Date Given: No <CASEY DORANTES - Last Filed: 08/05/17 10:40> - History of Present Illness Time Seen by Provider: 08/04/17 18:01 Physician History: Pt states, she has been binge drinking for 2 days, started vomiting this morning. She fell apparently today, hit her right cheek against dresser, not sure about LOC, but vomited several times. She denies chest pain, no SOB, abdominal pain, fever or other complaints, she is alert and oriented x4, not lethargic. (CASEY DORANTES) Allergies/Adverse Reactions: hydrocodone bitartrate [From Lortab] Allergy (Mild, Verified 08/04/17 17:10) JERKING Home Medications: Ascorbic Acid [Vitamin C] 1,000 mg PO DAILY 07/25/17 [History] Calcium 500 mg PO DAILY 07/25/17 [History] Cholecalciferol (Vitamin D3) [Vitamin D3] 1,000 unit PO DAILY 07/25/17 [History] Ibuprofen 200 mg [Motrin 200 mg] 200 mg PO BID PRN PRN 07/25/17 [History] Multivitamin [Daily Multiple Vitamin] 1 each PO DAILY 07/25/17 [History] Pseudoephedrine HCl [Sudafed] 30 mg PO DAILY 08/04/17 [History] - Review of Systems Constitutional: No Symptoms Abdominal/Gastrointestinal: Nausea, Vomiting All Other Systems: Reviewed and Negative <CASEY DORANTES - Last Filed: 08/05/17 10:40> - Past Medical History Pertinent Past Medical History: Yes Neurological History: TIA ENT History: Macular Degeneration Cardiac History: Hypertension Respiratory History: Asthma Endocrine Medical History: Diabetes Type II Musculoskeletal History: Arthritis GI Medical History: GERD, Gallbladder Disease, Hemorrhoids History: No Pertinent History Psycho-Social History: Anxiety, Depression Female Reproductive Disorders: No Pertinent History Other Medical History: ALCOHOLISM - Past Surgical History Past Surgical History: Yes Neuro Surgical History: No Pertinent History Cardiac: No Pertinent History Respiratory: No Pertinent History Gastrointestinal: Cholecystectomy Genitourinary: No Pertinent History Musculoskeletal: No Pertinent History Female Surgical History: No Pertinent History - Social History Smoking Status: Never smoker Exposure to second hand smoke: No Drug Use: none Patient Lives Alone: No - Female History Hx Now: No <CASEY DORANTES Filed: 08/05/17 10:40> - Physical Exam General Appearance: no apparent distress Eye Exam: PERRL/EOMI, other (left eye: old corneal hazyness in front of her pupil ( old injury), right cheek; few days old ecchymosis, no skin injury) Ears, Nose, Throat Exam: normal ENT inspection, pharynx normal Neck Exam: normal inspection, non-tender, supple, full range of motion, No mass , No carotid bruit, No JVD Respiratory Exam: normal breath sounds, lungs clear, airway intact, No chest tenderness, No respiratory distress Cardiovascular Exam: regular rate/rhythm, normal heart sounds, normal peripheral pulses, No murmur Gastrointestinal/Abdomen Exam: soft, normal bowel sounds, No tenderness, No distention, No mass, No guarding, No ecchymosis Back Exam: normal inspection, No CVA tenderness Extremity Exam: normal inspection, pelvis stable, No calf tenderness, No cat' s sign Neurologic Exam: alert, oriented x 3, cooperative, normal mood/affect Skin Exam: normal color, warm, dry, No rash Lymphatic Exam: adenopathy SpO2 Interpretation: normal SpO2: 96 Oxygen Delivery: Room Air <CASEY DORANTES Filed: 08/05/17 10:40> - Nursing Vital Signs Nursing Vital Signs: Initial Vital Signs Temperature 97.3 F 08/04/17 17:04 Pulse Rate 119 H 08/04/17 17:04 Respiratory Rate 20 08/04/17 17:04 Blood Pressure 217/135 08/04/17 17:04 O2 Sat by Pulse Oximetry 100 08/04/17 17:04 Pain Scale Pain Intensity 0 - Course Nursing assessment & vital signs reviewed: Yes <CONCEPCIONBERNARDCASEY - Last Filed: 08/05/17 10:40> Ordered Tests: Active Orders 24 hr Category Date Time Status Up Ad Rafia ROUTINE Activity 08/04/17 20:36 Active Accucheck ACHS Care 08/04/17 20:36 Active Pack Room Operator STAT Care 08/04/17 18:02 Completed Clean Catch Urine Specimen STAT Care 08/04/17 17:50 Completed Code Status Order Care 08/04/17 20:36 Active EKG-ER Only STAT Care 08/04/17 18:02 Completed Fall Protocol Q1H Care 08/04/17 20:36 Active IV Care Q6H Care 08/04/17 20:36 Active IV Insertion STAT Care 08/04/17 18:02 Completed Neuro Checks Q4H Care 08/04/17 20:[address] in Observation Care 08/04/17 20:36 Active Myriam Lassiter ROUTINE Care 08/04/17 20:36 Active CERVICAL SPINE WO CONTRAST [CT] Stat Exams 08/04/17 18:08 Completed FACIAL BONES WO CONTRAST [CT] Stat Exams 08/04/17 18:08 Completed HEAD WITHOUT CONTRAST [CT] Stat Exams 08/04/17 18:08 Completed OBSTR/ACUTE ABDOMEN SERIES Stat Exams 08/04/17 18:09 Completed AMYLASE Stat Lab 08/04/17 17:30 Completed CBC W DIFF AM.LAB Lab 08/05/17 03:23 Completed CBC W DIFF Stat Lab 08/04/17 17:30 Completed CMP AM.LAB Lab 08/05/17 03:23 Completed CMP Stat Lab 08/04/17 17:30 Completed ETHYL ALCOHOL Stat Lab 08/04/17 17:30 Completed LIPASE Stat Lab 08/04/17 17:30 Completed TROPONIN Q3H Lab 08/04/17 17:30 Completed TROPONIN Q3H Lab 08/04/17 21:29 Completed TROPONIN Q3H Lab 08/05/17 00:30 Completed TROPONIN Q3H Lab 08/05/17 03:23 Completed TROPONIN Q3H Lab 08/05/17 06:10 Completed UA W/ MICROSCOPIC Stat Lab 08/04/17 18:19 Completed Urine Triage Profile Stat Lab 08/04/17 18:19 Completed Medication Summary Generic Name Dose Route Start Last Admin Trade Name Jackq PRN Reason Stop Dose Admin Acetaminophen 650 mg 08/04/17 20:36 Tylenol 325 Mg PO 09/03/17 20:35 Q4H PRN PRN PAIN AND/OR FEVER Ceftriaxone Sodium/Dextrose 1 g in 50 mls @ 100 mls/hr 08/05/17 10:00 Rocephin 1 Gm-D5w 50 Ml Bag IV 09/04/17 09:59 Q24H10 NEHAL Potassium Chloride/Dextrose/Sod Cl 1,000 mls @ 100 mls/hr 08/04/17 20:36 23:53 D5w/0.45ns W/ 20meq Kcl 1000 Ml IV 09/03/17 20:35 100 mls/hr .Q10H NEHAL Administration Ondansetron HCl 4 mg 08/04/17 20:36 Zofran 4 Mg/2 Ml Vial IV 09/03/17 20:35 Q6H PRN PRN NAUSEA/VOMITING Pantoprazole Sodium 40 mg 08/05/17 10:00 Protonix 40 Mg Iv IV 09/04/17 09:59 Q24H10 NEHAL Discontinued Medications Generic Name Dose Route Start Last Admin Trade Name Jackq PRN Reason Stop Dose Admin Al Hydrox/Mg Hydrox/Simethicone Confirm 08/04/17 17:48 Maalox Es 30 Ml Unit Dose Administered 08/04/17 17:49 Dose 30 ml .ROUTE .STK-MED ONE Famotidine 20 mg 08/04/17 17:44 08/04/17 17:50 Pepcid 20 Mg Vial IV 08/04/17 17:45 20 mg STAT ONE Administration Famotidine Confirm 08/04/17 17:48 Pepcid 20 Mg Vial Administered 08/04/17 17:49 Dose 20 mg IV .STK-MED ONE Sodium Chloride 1,000 mls @ 999 mls/hr 08/04/17 18:04 08/04/17 18:16 Sodium Chloride 0.9% 1000 Ml IV 08/04/17 19:04 999 mls/hr .Q1H1M STA Administration Sodium Chloride Confirm 08/04/17 18:15 Sodium Chloride 0.9% 1000 Ml Administered 08/04/17 18:16 Dose 1,000 mls @ ud .ROUTE .STK-MED ONE Lidocaine HCl Confirm 08/04/17 17:48 Xylocaine Hcl Viscous * Administered 08/04/17 17:49 Dose 15 ml .ROUTE .STK-MED ONE Magnesium Hydroxide 45 ml 08/04/17 17:46 08/04/17 17:49 Gi Cocktail 45 Ml (Maalox/Lidocaine) PO 08/04/17 17:47 45 ml STAT ONE Administration Ondansetron HCl 4 mg 08/04/17 17:45 08/04/17 17:50 Zofran 4 Mg/2 Ml Vial IV 08/04/17 17:46 4 mg STAT ONE Administration Ondansetron HCl Confirm 08/04/17 17:48 Zofran 4 Mg/2 Ml Vial Administered 08/04/17 17:49 Dose 4 mg .ROUTE .STK-MED ONE Lab/Rad Data: Laboratory Result Diagrams 08/04/17 17:30 08/04/17 17:30 Laboratory Results 08/04/17 08/04/17 08/04/17 Range/Units 18:19 18:19 17:30 WBC (4.0-10.5) K/mm3 RBC (4.1-5.4) M/mm3 Hgb (12.0-16.0) gm/dl Hct (35-47) % MCV (78-100) fl MCH (26-32) pg MCHC (32-36) g/dl RDW (11.5-14.0) % Plt Count (150-450) K/mm3 MPV (6-9.5) fl Gran % (36.0-66.0) % Eos # (Auto) (0-0.5) Absolute Lymphs (auto) (1.0-4.6) Absolute Monos (auto) (0.0-1.3) Lymphocytes % (24.0-44.0) % Monocytes % (0.0-12.0) % Eosinophils % (0.00-5.0) % Basophils % (0.0-0.4) % Absolute Granulocytes (1.4-6.9) Basophils # (0-0.4) Sodium (137-145) mmol/L Potassium (3.5-5.1) mmol/L Chloride (98-107) mmol/L Carbon Dioxide (22-30) mmol/L Anion Gap (5-15) MEQ/L BUN (7-17) mg/dL Creatinine (0.52-1.04) mg/dL Estimated GFR ML/MIN Glucose (74-106) mg/dL Calcium (8.4-10.2) mg/dL Total Bilirubin (0.2-1.3) mg/dL AST (14-36) U/L ALT (0-35) U/L Alkaline Phosphatase (38-126) U/L Troponin I (0.000-0.034) ng/mL Serum Total Protein (6.3-8.2) g/dL Albumin (3.5-5.0) g/dL Amylase (30-110) U/L Lipase (23-300) U/L Ur Collection Type CLEAN CATCH Urine Color YELLOW (YELLOW) Urine Appearance CLEAR (CLEAR) Urine pH 5.0 (5-6) Ur Specific [place] 1.025 (1.005-1.025) Urine Protein 300 (Negative) Urine Ketones LARGE (NEGATIVE) Urine Blood NEGATIVE (0-5) Robert/ul Urine Nitrite NEGATIVE (NEGATIVE) Urine Bilirubin NEGATIVE (NEGATIVE) Urine Urobilinogen NORMAL (0-1) mg/dL Ur Leukocyte Esterase NEGATIVE (NEGATIVE) Urine Microscopic RBC 0-2 (0-2) /HPF Urine Microscopic WBC 0-2 (0-5) /HPF Ur Epithelial Cells FEW (FEW) /HPF Urine Bacteria MODERATE (NEGATIVE) /HPF Urine Mucus SLIGHT (NEGATIVE) /HPF Urine Culture Reflexed NO (NO) Urine Glucose 1000 (NEGATIVE) mg/dL Urine Opiates Level NEGATIVE (NEGATIVE) Ur Methadone NEGATIVE (NEGATIVE) Urine Barbiturates NEGATIVE (NEGATIVE) Ur Phencyclidine (PCP) NEGATIVE (NEGATIVE) Urine Amphetamine NEGATIVE (NEGATIVE) U Benzodiazepine Level NEGATIVE (NEGATIVE) Urine Cocaine NEGATIVE (NEGATIVE) Urine Marijuana (THC) NEGATIVE (NEGATIVE) Ethyl Alcohol < 10 (0-10) mg/dL Specimen Received 08/04/17 1815 08/04/17 08/04/17 08/04/17 Range/Units 17:30 17:30 17:30 WBC 15.6 H (4.0-10.5) K/mm3 RBC 5.16 (4.1-5.4) M/mm3 Hgb 16.1 H (12.0-16.0) gm/dl Hct 47.7 H (35-47) % MCV 92.4 (78-100) fl MCH 31.2 (26-32) pg MCHC 33.8 (32-36) g/dl RDW 14.8 H (11.5-14.0) % Plt Count 291 (150-450) K/mm3 MPV 9.4 (6-9.5) fl Gran % 85.2 H (36.0-66.0) % Eos # (Auto) 0.02 (0-0.5) Absolute Lymphs (auto) 1.53 (1.0-4.6) Absolute Monos (auto) 0.69 (0.0-1.3) Lymphocytes % 9.8 L (24.0-44.0) % Monocytes % 4.4 (0.0-12.0) % Eosinophils % 0.1 (0.00-5.0) % Basophils % 0.5 (0.0-0.4) % Absolute Granulocytes 13.24 H (1.4-6.9) Basophils # 0.07 (0-0.4) Sodium 137 (137-145) mmol/L Potassium 4.2 (3.5-5.1) mmol/L Chloride 97 L (98-107) mmol/L Carbon Dioxide 20 L (22-30) mmol/L Anion Gap 24.5 H (5-15) MEQ/L BUN 15 (7-17) mg/dL Creatinine 0.54 (0.52-1.04) mg/dL Estimated GFR > 60.0 ML/MIN Glucose 252 H (74-106) mg/dL Calcium 10.1 (8.4-10.2) mg/dL Total Bilirubin 0.80 (0.2-1.3) mg/dL AST 41 H (14-36) U/L ALT 45 H (0-35) U/L Alkaline Phosphatase 105 (38-126) U/L Troponin I < 0.012 (0.000-0.034) ng/mL Serum Total Protein 8.3 H (6.3-8.2) g/dL Albumin 5.0 (3.5-5.0) g/dL Amylase 81 (30-110) U/L Lipase 85 (23-300) U/L Ur Collection Type Urine Color (YELLOW) Urine Appearance (CLEAR) Urine pH (5-6) Ur Specific [place] (1.005-1.025) Urine Protein (Negative) Urine Ketones (NEGATIVE) Urine Blood (0-5) Robert/ul Urine Nitrite (NEGATIVE) Urine Bilirubin (NEGATIVE) Urine Urobilinogen (0-1) mg/dL Ur Leukocyte Esterase (NEGATIVE) Urine Microscopic RBC (0-2) /HPF Urine Microscopic WBC (0-5) /HPF Ur Epithelial Cells (FEW) /HPF Urine Bacteria (NEGATIVE) /HPF Urine Mucus (NEGATIVE) /HPF Urine Culture Reflexed (NO) Urine Glucose (NEGATIVE) mg/dL Urine Opiates Level (NEGATIVE) Ur Methadone (NEGATIVE) Urine Barbiturates (NEGATIVE) Ur Phencyclidine (PCP) (NEGATIVE) Urine Amphetamine (NEGATIVE) U Benzodiazepine Level (NEGATIVE) Urine Cocaine (NEGATIVE) Urine Marijuana (THC) (NEGATIVE) Ethyl Alcohol (0-10) mg/dL Specimen Received - Progress Discussed with Dr.: Bessie Gil Will see patient in: hospital (observation) Counseled pt/family regarding: drug and/or alcohol abuse, diagnosis <WISAM BAH - Last Filed: 08/04/17 19:28> - Progress Progress: improved <CASEY DORANTES - Last Filed: 08/05/17 10:40> - Progress Progress Note: 08/04/17 19:13 Pt stopped vomiting, alert active, no severe pain or distress. Awaiting her CT and labs case was discussed with Dr Bah and he will complete her disposition. (CASEY DORANTES) - Departure Time of Disposition: 19:29 Departure Disposition: Observation Critical Care Time: Yes Critical Care Time(excluding separately billable procedures): 30-74 minutes <WISAM BAH - Last Filed: 08/04/17 19:28> - Departure Critical Care Time: No <CASEY DORANTES - Last Filed: 08/05/17 10:40> - Departure Clinical Impression: Alcohol intoxication Qualifiers: Complication of substance-induced condition: uncomplicated Qualified Code(s): F10.920 - Alcohol use, unspecified with intoxication, uncomplicated Head injury, unspecified Qualifiers: Encounter type: initial encounter Qualified Code(s): S09.90XA - Unspecified injury of head, initial encounter Condition: Stable
[2017-08-04 18:25] LABS: Appearance CLEAR (CLEAR); Bilirubin NEGATIVE (NEGATIVE); Blood NEGATIVE Ery/ul (0-5); Glucose 1000 mg/dL (NEGATIVE); Ketones LARGE (NEGATIVE); Leukocyte Esterase NEGATIVE (NEGATIVE); Nitrite NEGATIVE (NEGATIVE); Protein,Urine Dip 300 (Negative); Specific Gravity 1.025 (1.005-1.025); Urobilinogen NORMAL mg/dL (0-1)
[2017-08-04 18:31] LABS: Bacteria MODERATE /HPF (NEGATIVE); Epithelial Cells FEW /HPF (FEW); Mucus SLIGHT /HPF (NEGATIVE); WBC 0-2 /HPF (0-5)
[2017-08-04 18:40] LABS: Amphetamine,Urine NEGATIVE (NEGATIVE); Barbiturate,Urine NEGATIVE (NEGATIVE); Benzodiazepine,Urine NEGATIVE (NEGATIVE); Cocaine,Urine NEGATIVE (NEGATIVE); Methadone,Urine NEGATIVE (NEGATIVE); Opiate,Urine NEGATIVE (NEGATIVE); PCP,Urine NEGATIVE (NEGATIVE); THC,Urine NEGATIVE (NEGATIVE)
[2017-08-04] MEDS ORDERED: TYLENOL 325 MG PO PRN (20:36)
[2017-08-04] MEDS ORDERED: Zofran 4 MG/2 ML VIAL IV PRN (20:36)
--- NOTE | 2017-08-04 22:45 | XRAY ---
Indication: Right frontal head/orbital bruising following fall. Multiple contiguous axial images obtained through the head without contrast. Comparison: July 24, 2017. Again age-appropriate global atrophy and minimal periventricular degenerative micro-ischemia. Again no acute intracranial hemorrhage, abnormal extra-axial fluid collection, or mass effect. Fourth ventricle is midline without hydrocephalus. Bony calvarium intact. Visualized paranasal sinuses and mastoid air cells are clear. Impression: Stable nonacute senile brain. Comment: Preliminary interpretation was made by [facility]. No discrepancy. CTDI 49.85
--- NOTE | 2017-08-04 22:49 | XRAY ---
Indication: Pain following fall. Multiple contiguous axial images obtained through the cervical spine. Sagittal and coronal reformatted images obtained. Comparison: January 12, 2011. Axial images again negative for acute fracture, suspicious bony lesions, or spinal canal stenosis. Progressive worsening moderate C4-C5 degenerative endplate spurring. Sagittal and coronal reformatted images demonstrates worsening C4-C5 disc space narrowing. No acute compression fracture, subluxation, or jumped facet. Normal-appearing craniocervical junction. Visualized noncontrasted soft tissues including lung apices unremarkable. CT head reported separately. Impression: 1. Negative acute fracture/subluxation. 2. Worsening C4-C5 degenerative disc disease. Comment: Preliminary interpretation was made by [facility]. No discrepancy. CTDI 112.81
--- NOTE | 2017-08-04 22:51 | XRAY ---
Indication: Right frontal head/orbital bruising following fall. Multiple contiguous axial images obtained through the facial bones. Sagittal and coronal reformatted images obtained. Comparison: None. There are bilateral dental amalgams producing beam artifact limiting these levels. Minimal right facial soft tissue swelling. No acute fracture, suspicious bony lesions, or radiopaque foreign body. Orbits including roof, jensen, and floors are intact. Bilateral TMJ degenerative changes. Paranasal sinuses and nasal passages are clear. Minimal nasal septal deviation to the left. Visualized noncontrasted soft tissues unremarkable. CT head and CT cervical spine reported separately. Impression: 1. Negative acute fracture. 2. Bilateral TMJ degenerative changes. Comment: Preliminary interpretation was made by [facility]. No discrepancy. CTDI 59.47
--- NOTE | 2017-08-04 22:53 | XRAY ---
Indication: Abdominal pain and vomiting. Comparison: Chest exam July 24, 2017. 2 views of the abdomen nonacute and nonobstructed with previous cholecystectomy. Solid organs unremarkable. Osseous structures intact with mild multilevel degenerative spondylosis and mild levoscoliosis centered at L4. Single PA chest again demonstrates normal heart and lungs. Bony thorax intact. Impression: Negative abdomen. Stable nonacute one view chest.
[2017-08-04] MEDS: D5W/0.45NS W/ 20mEq KCl 1000 ML 1,000 ML IV SCH (23:53)
[2017-08-05 03:50] LABS: ALBUMIN 4.2 g/dL (3.5-5.0); ALKALINE PHOSPHATASE 82 U/L (38-126); ANION GAP 13.4 MEQ/L (5-15); BLOOD UREA NITROGEN 9 mg/dL (7-17); CHLORIDE 99 mmol/L (98-107); Calcium 9.2 mg/dL (8.4-10.2); Carbon Dioxide 25 mmol/L (22-30); Creatinine 1 0.53 mg/dL (0.52-1.04); Glucose 234 mg/dL (74-106); Potassium 3.7 mmol/L (3.5-5.1); SGOT/AST 27 U/L (14-36); SGPT/ALT 34 U/L (0-35); SODIUM 134 mmol/L (137-145); Total Protein 7.1 g/dL (6.3-8.2)
[2017-08-05 03:54] LABS: BASOPHIL % 0.4 % (0.0-0.4); Basophil (Absolute #) 0.05 (0-0.4); Eosinophil % 0.1 % (0.00-5.0); Eosinophil (Absolute #) 0.01 (0-0.5); Granulocyte Absolute (ANC) 8.96 (1.4-6.9); Granulocytes % 69.9 % (36.0-66.0); Hematocrit 41.9 % (35-47); Hemoglobin 14.3 gm/dl (12.0-16.0); Lymphocyte (Absolute #) 2.21 (1.0-4.6); Lymphocytes % 17.3 % (24.0-44.0); Mean Cell Volume 91.1 fl (78-100); Mean Corpuscular Hemoglobin 31.1 pg (26-32); Mean Corpuscular Hgb Concent. 34.1 g/dl (32-36); Monocyte (Absolute #) 1.58 (0.0-1.3); Monocytes % 12.3 % (0.0-12.0); Platelet Count 296 K/mm3 (150-450); Red Cell Distribution Width 14.7 % (11.5-14.0); White Blood Count 12.8 K/mm3 (4.0-10.5)
[2017-08-05 04:47] LABS: Slide Review 1 YES
[2017-08-05] MEDS ORDERED: ROCEPHIN 1 Gm-D5w 50 ml Bag** 1 G/50 ML IVPB IV SCH (10:00)
[2017-08-05] MEDS ORDERED: PROTONIX 40 MG IV IV SCH (10:00)
[2017-08-05] MEDS ORDERED: Tums EX 750 MG PO PRN (10:10)
[2017-08-05] MEDS: D5W/0.45NS W/ 20mEq KCl 1000 ML 1,000 ML IV SCH (11:13)
[2017-08-05 11:21] VITALS: BP 179/86; PULSE 109; O2SAT 97
--- NOTE | 2017-08-05 13:55 | PCM.SSS ---
History of Present Illness - Chief Complaint Chief Complaint: alcohol intoxication, head injury History of Present Illness: is a 66 year old female pt of Dr. Milian, with chronic alcoholism and depression, who was admitted through the ER for alcohol abuse and a fall. She admits she was drinking vodka shots two days ago, but did not drink yesterday ( her DAVI was negative on admission). She says she got her foot caught on a small table in her house and fell, hitting her R forehead and her R eye. Apparently a neighbor was concerned about her and called the ambulance. Pt states her heart was pounding and that's why she wanted to come to the ER. In the ER, CT head and C-spine were negative. Pt also c/o vomting yesterday. KUB was negative and electrolytes and renal function were fine. Urine drug screen was negative. Pt is tangential and talkative, though pleasant, but is a somewhat difficult historian. She says her "feelings were hurt" 2d ago and that's why she was drinking. She admits to depression but denies suicidal ideation. She states that sudafed helps her depression because it makes her feel alert and "up" in the morning but wears off by evening and then she feels more depressed. She did have a hospital admission about a week ago that included a telemental consult. That consult is unavailable but I did see Dr. Milian' discharge note and she was started on Cymbalta which she says she took for the first time 2d ago. - Review of Systems Constitutional: Chills (for about 3d) Eyes: Eye Pain (s/p trauma) Ears, Nose, & Throat: Throat Pain (since yesterday) Respiratory: Cough (little) Cardiac: Chest Pain (sore muscles in central chest s/p fall), Palpitations ( "heart pounding" which prompted ER visit) Abdominal/Gastrointestinal: Nausea, Vomiting (yesterday; resolved), Diarrhea ( this morning; resolved) Genitourinary Symptoms: Dysuria (resolved with discarding her irritating panty liner) Musculoskeletal: Other (LLE edema s/p remote injury) Psychological: Alcohol Abuse, Anxiety, Depression, No Suicidal Ideations Medications & Allergies Home Medications: Home Medication List Ascorbic Acid [Vitamin C] 1,000 mg PO DAILY 07/25/17 [History Confirmed 08/04/17 ] Calcium 500 mg PO DAILY 07/25/17 [History Confirmed 08/04/17] Cholecalciferol (Vitamin D3) [Vitamin D3] 1,000 unit PO DAILY 07/25/17 [History Confirmed 08/04/17] Duloxetine HCl 30 mg [Cymbalta 30 MG Capsule] 30 mg PO DAILY #30 cap 07/25 [Rx Confirmed 08/04/17] Ibuprofen 200 mg [Motrin 200 mg] 200 mg PO BID PRN PRN 07/25/17 [History Confirmed 08/04/17] Multivitamin [Daily Multiple Vitamin] 1 each PO DAILY 07/25/17 [History Confirmed 08/04/17] Allergies/Adverse Reactions: Allergies Allergy/AdvReac Type Severity Reaction Status Date / Time hydrocodone bitartrate Allergy Mild JERKING Verified 08/04/17 17:10 [From Lortab] - Past Medical History Past Medical History: Yes Neurological History: TIA ENT History: Macular Degeneration Cardiac History: Hypertension Respiratory History: Asthma Endocrine Medical History: Diabetes Type II Musculoskelatal History: Arthritis GI Medical History: GERD, Gallbladder Disease, Hemorrhoids History: No Pertinent History Pyscho-Social History: Anxiety, Depression Reproductive Disorders: No Pertinent History Comment: ALCOHOLISM - Female History Hx Last Menstrual Period: post menopause Are you now?: No - Past Surgical History Past Surgical History: Yes Neuro Surgical History: No Pertinent History Cardiac History: No Pertinent History Respiratory Surgery: No Pertinent History GI Surgical History: Cholecystectomy Genitourinary Surgical Hx: No Pertinent History Musculskeletal Surgical Hx: No Pertinent History Female Surgical History: No Pertinent History - Social History Smoking Status: Never smoker Exposure to second hand smoke: No Alcohol: Weekly Drug Use: none - Physical Exam Vital Signs: Vital Signs - 24 hr Temp Pulse Resp BP Pulse Ox 08/05/17 12:00 18 08/05/17 11:19 98.6 F 109 H 18 179/86 97 08/05/17 10:40 96 08/05/17 08:00 18 08/05/17 07:22 98.5 F 113 H 18 199/96 97 08/05/17 04:00 98.8 F 116 H 19 166/94 97 08/05/17 00:00 98.6 F 119 H 20 170/88 99 08/04/17 21:14 98.3 F 115 H 18 180/100 98 08/04/17 18:50 116 H 16 230/119 100 08/04/17 18:01 117 H 22 206/111 08/04/17 17:50 116 H 18 206/111 96 08/04/17 17:04 97.3 F 119 H 20 217/135 100 Results - Labs Lab/Micro Results: Accuchecks Date 08/05/17 Date 08/04/17 Time 00:57 Accucheck Value: 234 Accucheck Value: 230 Accucheck Value: 226 Accucheck Value: 226 Lab Results-Last 24 Hours 08/04/17 08/05/17 08/05/17 Range/Units 21:29 00:30 03:23 WBC (4.0-10.5) K/mm3 RBC (4.1-5.4) M/mm3 Hgb (12.0-16.0) gm/dl Hct (35-47) % MCV (78-100) fl MCH (26-32) pg MCHC (32-36) g/dl RDW (11.5-14.0) % Plt Count (150-450) K/mm3 MPV (6-9.5) fl Gran % (36.0-66.0) % Eos # (Auto) (0-0.5) Absolute Lymphs (auto) (1.0-4.6) Absolute Monos (auto) (0.0-1.3) Lymphocytes % (24.0-44.0) % Monocytes % (0.0-12.0) % Eosinophils % (0.00-5.0) % Basophils % (0.0-0.4) % Absolute Granulocytes (1.4-6.9) Basophils # (0-0.4) Sodium (137-145) mmol/L Potassium (3.5-5.1) mmol/L Chloride (98-107) mmol/L Carbon Dioxide (22-30) mmol/L Anion Gap (5-15) MEQ/L BUN (7-17) mg/dL Creatinine (0.52-1.04) mg/dL Estimated GFR ML/MIN Glucose (74-106) mg/dL Calcium (8.4-10.2) mg/dL Total Bilirubin (0.2-1.3) mg/dL AST (14-36) U/L ALT (0-35) U/L Alkaline Phosphatase (38-126) U/L Troponin I < 0.012 0.013 0.013 (0.000-0.034) ng/mL Serum Total Protein (6.3-8.2) g/dL Albumin (3.5-5.0) g/dL Slides for Path Review 08/05/17 08/05/17 08/05/17 Range/Units 03:23 03:23 06:10 WBC 12.8 H (4.0-10.5) K/mm3 RBC 4.60 (4.1-5.4) M/mm3 Hgb 14.3 (12.0-16.0) gm/dl Hct 41.9 (35-47) % MCV 91.1 (78-100) fl MCH 31.1 (26-32) pg MCHC 34.1 (32-36) g/dl RDW 14.7 H (11.5-14.0) % Plt Count 296 (150-450) K/mm3 MPV 9.0 (6-9.5) fl Gran % 69.9 H (36.0-66.0) % Eos # (Auto) 0.01 (0-0.5) Absolute Lymphs (auto) 2.21 (1.0-4.6) Absolute Monos (auto) 1.58 H (0.0-1.3) Lymphocytes % 17.3 L (24.0-44.0) % Monocytes % 12.3 H (0.0-12.0) % Eosinophils % 0.1 (0.00-5.0) % Basophils % 0.4 (0.0-0.4) % Absolute Granulocytes 8.96 H (1.4-6.9) Basophils # 0.05 (0-0.4) Sodium 134 L (137-145) mmol/L Potassium 3.7 (3.5-5.1) mmol/L Chloride 99 (98-107) mmol/L Carbon Dioxide 25 (22-30) mmol/L Anion Gap 13.4 (5-15) MEQ/L BUN 9 (7-17) mg/dL Creatinine 0.53 (0.52-1.04) mg/dL Estimated GFR > 60.0 ML/MIN Glucose 234 H (74-106) mg/dL Calcium 9.2 (8.4-10.2) mg/dL Total Bilirubin 0.80 (0.2-1.3) mg/dL AST 27 (14-36) U/L ALT 34 (0-35) U/L Alkaline Phosphatase 82 (38-126) U/L Troponin I 0.013 (0.000-0.034) ng/mL Serum Total Protein 7.1 (6.3-8.2) g/dL Albumin 4.2 (3.5-5.0) g/dL Slides for Path Review YES Accuchecks Date 08/05/17 Date 08/04/17 Time 00:57 Accucheck Value: 234 Accucheck Value: 230 Accucheck Value: 226 Accucheck Value: 226 Assessment/Plan (1) Chronic alcohol abuse Current Visit: No Status: Chronic Assessment & Plan: Pt states, "My doctor told me I couldn't be an alcoholic because of my stomach [ irritation]. So I only drink rotgut whisky and I space it out." I informed the pt she certainly can be (and certainly is) an alcoholic even so. We discussed briefly warning signs of alcoholism. This is the first time I've seen the pt but I know she's aware of her alcoholism because she was referred to AA at previous visits. Code(s): F10.10 - ALCOHOL ABUSE, UNCOMPLICATED (2) Head injury, unspecified Current Visit: Yes Status: Acute Qualifiers: Encounter type: initial encounter Qualified Code(s): S09.90XA - Unspecified injury of head, initial encounter Assessment & Plan: CT maxilofacial negative for fracutre. Code(s): S09.90XA - UNSPECIFIED INJURY OF HEAD, INITIAL ENCOUNTER (3) Palpitations Current Visit: Yes Status: Acute Assessment & Plan: on telemetry overnight with no issues. If she has more issues in the future she is to f/u with Dr. Milian for further testing. Code(s): R00.2 - PALPITATIONS (4) Proteinuria Current Visit: Yes Status: Acute Qualifiers: Proteinuria type: isolated Assessment & Plan: 300 protein in UA here. F/u with Dr. Milian (Lissy task sent) Code(s): R80.9 - PROTEINURIA, UNSPECIFIED (5) Depression Current Visit: No Status: Acute Qualifiers: Depression Type: major depressive disorder Active/Remission status: currently active Psychotic features: without psychotic features Assessment & Plan: on cymbalta. I explained (as I'm sure has Dr. Milian and [facility]) that pseudafed is not an appropriate or useful tx for depression, is not healthy to take daily, and she needs to stay on the cymbalta. Code(s): F32.9 - MAJOR DEPRESSIVE DISORDER, SINGLE EPISODE, UNSPECIFIED Hospital Summary - Hospital Course Hospital Course: Pt admitted with a fall and for alcohol intoxication, however her alcohol level undetectable. She did have a bruise on the face but CT maxilofacial, CT head, and CT cervical spine are all negative for acute fracture. She felt some heart pounding at home but telemetry unremarkable. She does not appear to have good insight regarding either her depression or alcohol abuse. She did start cymbalta after a recent hospital stay for alcohol issues. She is to f/u with Dr. Milian. - Vitals & Intake/Output Vital Signs: Vital Signs Temperature 98.6 F 08/05/17 11:19 Pulse Rate 109 H 08/05/17 11:19 Respiratory Rate 18 08/05/17 12:00 Blood Pressure 179/86 08/05/17 11:19 O2 Sat by Pulse Oximetry 97 08/05/17 11:19 Intake & Output: Intake & Output 08/03/17 08/04/17 08/05/17 08/06/17 11:59 11:59 11:59 11:59 Intake Total 2485 480 Output Total 1950 Balance 535 480 Weight 81.4 kg - Lab Result Diagrams: 08/05/17 03:23 08/05/17 03:23 Lab Results-Last 24 Hrs: Accuchecks Date 08/05/17 Date 08/04/17 Time 00:57 Accucheck Value: 234 Accucheck Value: 230 Accucheck Value: 226 Accucheck Value: 226 Lab Results-Last 24 Hours 08/04/17 08/05/17 08/05/17 Range/Units 21:29 00:30 03:23 WBC (4.0-10.5) K/mm3 RBC (4.1-5.4) M/mm3 Hgb (12.0-16.0) gm/dl Hct (35-47) % MCV (78-100) fl MCH (26-32) pg MCHC (32-36) g/dl RDW (11.5-14.0) % Plt Count (150-450) K/mm3 MPV (6-9.5) fl Gran % (36.0-66.0) % Eos # (Auto) (0-0.5) Absolute Lymphs (auto) (1.0-4.6) Absolute Monos (auto) (0.0-1.3) Lymphocytes % (24.0-44.0) % Monocytes % (0.0-12.0) % Eosinophils % (0.00-5.0) % Basophils % (0.0-0.4) % Absolute Granulocytes (1.4-6.9) Basophils # (0-0.4) Sodium (137-145) mmol/L Potassium (3.5-5.1) mmol/L Chloride (98-107) mmol/L Carbon Dioxide (22-30) mmol/L Anion Gap (5-15) MEQ/L BUN (7-17) mg/dL Creatinine (0.52-1.04) mg/dL Estimated GFR ML/MIN Glucose (74-106) mg/dL Calcium (8.4-10.2) mg/dL Total Bilirubin (0.2-1.3) mg/dL AST (14-36) U/L ALT (0-35) U/L Alkaline Phosphatase (38-126) U/L Troponin I < 0.012 0.013 0.013 (0.000-0.034) ng/mL Serum Total Protein (6.3-8.2) g/dL Albumin (3.5-5.0) g/dL Slides for Path Review 08/05/17 08/05/17 08/05/17 Range/Units 03:23 03:23 06:10 WBC 12.8 H (4.0-10.5) K/mm3 RBC 4.60 (4.1-5.4) M/mm3 Hgb 14.3 (12.0-16.0) gm/dl Hct 41.9 (35-47) % MCV 91.1 (78-100) fl MCH 31.1 (26-32) pg MCHC 34.1 (32-36) g/dl RDW 14.7 H (11.5-14.0) % Plt Count 296 (150-450) K/mm3 MPV 9.0 (6-9.5) fl Gran % 69.9 H (36.0-66.0) % Eos # (Auto) 0.01 (0-0.5) Absolute Lymphs (auto) 2.21 (1.0-4.6) Absolute Monos (auto) 1.58 H (0.0-1.3) Lymphocytes % 17.3 L (24.0-44.0) % Monocytes % 12.3 H (0.0-12.0) % Eosinophils % 0.1 (0.00-5.0) % Basophils % 0.4 (0.0-0.4) % Absolute Granulocytes 8.96 H (1.4-6.9) Basophils # 0.05 (0-0.4) Sodium 134 L (137-145) mmol/L Potassium 3.7 (3.5-5.1) mmol/L Chloride 99 (98-107) mmol/L Carbon Dioxide 25 (22-30) mmol/L Anion Gap 13.4 (5-15) MEQ/L BUN 9 (7-17) mg/dL Creatinine 0.53 (0.52-1.04) mg/dL Estimated GFR > 60.0 ML/MIN Glucose 234 H (74-106) mg/dL Calcium 9.2 (8.4-10.2) mg/dL Total Bilirubin 0.80 (0.2-1.3) mg/dL AST 27 (14-36) U/L ALT 34 (0-35) U/L Alkaline Phosphatase 82 (38-126) U/L Troponin I 0.013 (0.000-0.034) ng/mL Serum Total Protein 7.1 (6.3-8.2) g/dL Albumin 4.2 (3.5-5.0) g/dL Slides for Path Review YES Micro Results-Entire Visit: Accuchecks Date 08/05/17 Date 08/04/17 Time 00:57 Accucheck Value: 234 Accucheck Value: 230 Accucheck Value: 226 Accucheck Value: 226 - Discharge Disposition: Home, Self-Care Condition: Good Prescriptions: Continue Multivitamin [Daily Multiple Vitamin] 1 each PO DAILY Ibuprofen 200 mg [Motrin 200 mg] 200 mg PO BID PRN PRN PRN Reason: pain Cholecalciferol (Vitamin D3) [Vitamin D3] 1,000 unit PO DAILY Calcium 500 mg PO DAILY Ascorbic Acid [Vitamin C] 1,000 mg PO DAILY Duloxetine HCl 30 mg [Cymbalta 30 MG Capsule] 30 mg PO DAILY #30 cap Discontinued Pseudoephedrine HCl [Sudafed] 30 mg PO DAILY Follow up with: MACK MILIAN MD [Primary Care Provider] - 1 Week
[2017-08-05] MEDS ORDERED: Cymbalta 30 MG Capsule PO SCH (14:00)
== END 2017-08-05 15:00 | disposition home or self-care (01) ==
LOC: ED 16:58 → MED SURG 20:32
PROVIDERS: ADMIT Family Medicine; ATTEND Family Medicine
DX: F10.10 Alcohol abuse, uncomplicated (principal); S09.90XA Unspecified injury of head, initial encounter; R00.2 Palpitations; R80.9 Proteinuria, unspecified; F32.9 Major depressive disorder, single episode, unspecified
CPT/HCPCS: 36000; 36415; 70450; 70486; 72125; 74022; 80053; 80302; 80307; 81000; 82150; 82962; 83690; 84484; 85025; 93005; 93041; 96360; 96374; 99285; G0378; J0696; J2405; A9270-GY; G0480